=== PATIENT | male | born 1960 | race Asian ===

== ENCOUNTER 2018-11-15 12:39 | Emergency (ER) | payer OTHER ==
--- NOTE | 2018-11-15 12:51 | PDOC ---
History of Present Illness - General Chief Complaint: Pain, Acute Stated Complaint: PATIENT HERE FOR KIDNEY STONES\ PAIN OF 10 Time Seen by Provider: 11/15/18 12:50 - History of Present Illness Initial Comments: 11/15/18 13:01 Mr. Gusman is a 58 yo male w/ pmh of single prior kidney stone (reportedly passed at home) who presents for evaluation of 3 hour history of sudden onset R flank pain radiating to groin. Patient reports pain has been increasing and is crampy in nature. Denies other symptoms at this time. The patient denies chest pain, shortness of breath, headache and dizziness. Denies fever, chills, nausea, vomit, diarrhea and constipation. Denies dysuria, frequency, urgency and hematuria. Past History - Past Medical History Allergies/Adverse Reactions: Allergies Allergy/AdvReac Type Severity Reaction Status Date / Time No Known Allergies Allergy Verified 11/15/18 12:53 Home Medications: Ambulatory Orders Vit B Comp/C/Folic/Iron/Vit E [Vitamin B Complex Tablet] 1 tab PO DAILY MDD 1 - Suicide/Smoking/Psychosocial Hx Smoking History: Never smoked Review of Systems - Review of Systems Comments:: 11/15/18 13:02 GENERAL/CONSTITUTIONAL: No fever or chills. No weakness. HEAD, EYES, EARS, NOSE AND THROAT: No change in vision. No ear pain or discharge. No sore throat. CARDIOVASCULAR: No chest pain or shortness of breath RESPIRATORY: No cough, wheezing, or hemoptysis. GASTROINTESTINAL: No nausea, vomiting, diarrhea or constipation. GENITOURINARY: +R flank pain as described. No dysuria, frequency, or change in urination. MUSCULOSKELETAL: No joint or muscle swelling or pain. No neck or back pain. SKIN: No rash NEUROLOGIC: No headache, vertigo, loss of consciousness, or change in strength/ sensation. ENDOCRINE: No increased thirst. No abnormal weight change HEMATOLOGIC/LYMPHATIC: No anemia, easy bleeding, or history of blood clots. ALLERGIC/IMMUNOLOGIC: No hives or skin allergy. *Physical Exam - Physical Exam Comments: 11/15/18 13:03 GENERAL: Awake, alert, and fully oriented, in no acute distress HEAD: No signs of trauma, normocephalic, atraumatic EYES: PERRLA, EOMI, sclera anicteric, conjunctiva clear ENT: Auricles normal inspection, hearing grossly normal, nares patent, oropharynx clear without exudates. Moist mucosa NECK: Normal ROM, supple, no lymphadenopathy, JVD, or masses LUNGS: No distress, speaks full sentences, clear to auscultation bilaterally HEART: Regular rate and rhythm, normal S1 and S2, no murmurs, rubs or gallops, peripheral pulses normal and equal bilaterally. ABDOMEN: +R flank and RLQ TTP. Soft, normoactive bowel sounds. No guarding, no rebound. No masses EXTREMITIES: Normal inspection, Normal range of motion, no edema. No clubbing or cyanosis. NEUROLOGICAL: Cranial nerves II through XII grossly intact. Normal speech, normal gait, no focal sensorimotor deficits SKIN: Warm, Dry, normal turgor, no rashes or lesions noted. ED Treatment Course - LABORATORY CBC & Chemistry Diagram: 11/15/18 12:58 11/15/18 12:58 Medical Decision Making - Medical Decision Making 11/15/18 13:44 Mr. Gusman is a 58 yo male w/ pmh as described who presents for evaluation of symptoms c/w nephrolithiasis vs. uti vs. pyelonephritis. Patient evaluated w/ labs as below as well as spiral CT for confirmation of kidney stone. 11/15/18 13:55 Patient noted to have 4mm partially obstructing stone at R UVJ w/ only mild hydro. Patient will be discharged w/ percocet for breakthrough pain and f/u outpatient w/ PCP at previously scheduled appt later today. Discharging to home. Laboratory Results - last 24 hr 11/15/18 11/15/18 11/15/18 12:58 12:58 12:58 WBC 8.5 RBC 4.50 Hgb 13.1 Hct 38.9 MCV 86.4 MCH 29.2 MCHC 33.8 RDW 13.0 Plt Count 201 MPV 8.8 Absolute Neuts (auto) 5.4 Neutrophils % 63.9 Lymphocytes % 27.0 Monocytes % 5.9 Eosinophils % 2.5 Basophils % 0.7 Nucleated RBC % 0 Sodium 136 Potassium 4.2 Chloride 107 Carbon Dioxide 24 Anion Gap 6 L BUN 20 H Creatinine 1.1 Creat Clearance w eGFR 69.00 Random Glucose 111 H Calcium 9.0 Total Bilirubin 0.4 AST 19 ALT 25 Alkaline Phosphatase 134 H Total Protein 7.3 Albumin 3.8 Urine Color Yellow Urine Appearance Clear Urine pH 7.0 Ur Specific [place] 1.029 Urine Protein Negative Urine Glucose (UA) Negative Urine Ketones Trace H Urine Blood Negative Urine Nitrite Negative Urine Bilirubin Negative Urine Urobilinogen 1.0 Ur Leukocyte Esterase Negative *DC/Admit/Observation/Transfer Diagnosis at time of Disposition: Kidney stone on right side - Discharge Dispostion Disposition: HOME - Referrals Referrals: Tom Velarde MD [Primary Care Provider] - - Patient Instructions Printed Discharge Instructions: DI for Kidney Stones Additional Instructions: You were evaluated today in the ER and found to have a 4mm partially obstructing stone at your right ureterovesicular junction. Your pain improved following IV fluids and NSAIDS for pain control. You may take motrin at home per package instructions for further pain control. We have also sent a proscription to your pharmacy for medicine you may take for breakthrough pain. Please follow-up with primary care provider at previously scheduled appointment later today. Return to ER if any fever, chills, pain not controllable with above treatment, or other concerning symptoms. - Post Discharge Activity
[2018-11-15 12:54] VITALS: BMI 29.0
[2018-11-15] MEDS ORDERED: KETOROLAC TROMETHAMINE 15 MG/ML VIAL IVPUSH ONE (12:55)
[2018-11-15] MEDS ORDERED: SODIUM CHLORIDE 1,000 ML IV STA (12:55)
[2018-11-15] MEDS ORDERED: KETOROLAC TROMETHAMINE 30 MG/1 ML VIAL ONE (12:59)
[2018-11-15 13:10] LABS: BASO % 0.7 % (0-2.0); EOS % 2.5 % (0-4.5); HEMATOCRIT 38.9 % (35.4-49); HEMOGLOBIN 13.1 GM/dL (11.7-16.9); MCH 29.2 pg (25.7-33.7); MCHC 33.8 g/dl (32.0-35.9); MEAN CELL VOLUME 86.4 fl (80-96); MEAN PLT VOLUME 8.8 fl (7.5-11.1); MONO % 5.9 % (3.8-10.2); NEUT % 63.9 % (42.8-82.8); PLATELET COUNT 201 K/MM3 (134-434); WHITE BLOOD COUNT 8.5 K/mm3 (4.0-10.0)
[2018-11-15 13:18] LABS: URINE APPEARANCE CLEAR; URINE BILIRUBIN NEGATIVE (NEGATIVE); URINE COLOR YELLOW; URINE GLUCOSE (UA) NEGATIVE (NEGATIVE); URINE KETONE TRACE (NEGATIVE); URINE LEUK ESTERASE NEGATIVE (NEGATIVE); URINE NITRITE NEGATIVE (NEGATIVE); URINE PROTEIN NEGATIVE (NEGATIVE)
[2018-11-15 13:40] LABS: ALBUMIN 3.8 g/dl (3.4-5.0); ALK PHOS 134 U/L (45-117); ANION GAP 6 MMOL/L (8-16); BILIRUBIN,TOTAL 0.4 mg/dL (0.2-1); BLOOD UREA NITROGEN 20 mg/dL (7-18); CHLORIDE 107 mmol/L (98-107); CO2 24 mmol/L (21-32); CREATININE 1.1 mg/dL (0.55-1.3); GLUCOSE,RANDOM 111 mg/dL (74-106); POTASSIUM 4.2 mmol/L (3.5-5.1); SGOT/AST 19 U/L (15-37); SGPT/ALT 25 U/L (13-61); SODIUM 136 mmol/L (136-145); TOT PROT 7.3 g/dl (6.4-8.2)
--- NOTE | 2018-11-15 13:40 | PDOC ---
Documentation entered by Teri Nesbitt SCRIBE, acting as scribe for Maliha Bermeo MD. Attending Attestation - Resident Resident Name: Carlos Melgoza - ED Attending Attestation I have performed the following: I have examined & evaluated the patient, The case was reviewed & discussed with the resident, I agree w/resident's findings & plan - HPI HPI: 11/15/18 12:57 The patient is a 58 year old male with no significant PMH who presents to the ER with right flank pain. Patient states the right flank pain is sharp with radiation to the right groin. Patient denies any other associated symptoms. Patient reports he has passed a small kidney stone in the past. The patient denies chest pain, shortness of breath, headache and dizziness. Denies fever, chills, nausea, vomit, diarrhea and constipation. Denies dysuria, frequency, urgency and hematuria. Allergies: NKA Past surgical history: None reported. Social history: No reported alcohol, drug or cigarette use. - Physicial Exam PE: GENERAL: Awake, alert, and fully oriented, in no acute distress. Appears uncomfortable. HEAD: No signs of trauma EYES: PERRLA, EOMI, sclera anicteric, conjunctiva clear ENT: Auricles normal inspection, hearing grossly normal, nares patent, oropharynx clear without exudates. Moist mucosa NECK: Normal ROM, supple, no lymphadenopathy, JVD, or masses LUNGS: Breath sounds equal, clear to auscultation bilaterally. No wheezes, and no crackles HEART: Regular rate and rhythm, normal S1 and S2, no murmurs, rubs or gallops ABDOMEN: Soft, +mild RLQ tenderness to palpation, normoactive bowel sounds. No guarding, no rebound. No masses. No CVAT EXTREMITIES: Normal range of motion, no edema. No clubbing or cyanosis. No cords, erythema, or tenderness NEUROLOGICAL: Cranial nerves II through XII grossly intact. Normal speech, normal gait. Motor and sensation intact SKIN: Warm, Dry, normal turgor, no rashes or lesions noted. - Medical Decision Making Pt with R flank pain radiating to groin, prior history of kidney stone. Suspect kidney stone. Will give toradol, obtain spiral CT. Maliha Bermeo MD: This documentation has been prepared by the [place] [employer], SCRIBE, under my direction and personally reviewed by me in its entirety. I confirm that the documentation accurately reflects all work, treatment, procedures, and medical decision making performed by me.
[2018-11-15 14:25] VITALS: BP 138/72; PULSE 72; TEMP 98.2
== END 2018-11-15 14:25 | disposition home or self-care (01) ==
LOC: JER 12:39
PROC: 3E0337Z Introduction of Electrolytic and Water Balance Substance into Peripheral Vein, Percutaneous Approach (ICD-10-PCS; principal; 2018-11-15)
PROC: 3E0333Z Introduction of Anti-inflammatory into Peripheral Vein, Percutaneous Approach (ICD-10-PCS; 2018-11-15)
DX: N13.2 Hydronephrosis with renal and ureteral calculous obstruction (principal); Z87.442 Personal history of urinary calculi
CPT/HCPCS: 36415; 74176-TC; 80053; 81003; 85025; 87086; 99283-25; J7030

== ENCOUNTER 2021-06-10 13:41 | Emergency (ER) | payer OTHER ==
[2021-06-10 14:09] VITALS: TEMP 97.7; BMI 28.7
[2021-06-10 16:54] LABS: BASO % 0.7 % (0-2.0); EOS % 1.5 % (0-4.5); HEMATOCRIT 37.4 % (35.4-49); HEMOGLOBIN 13.1 GM/dL (11.7-16.9); LYMPH % 33.2 % (8-40); MCH 29.6 pg (25.7-33.7); MCHC 34.9 g/dl (32.0-35.9); MEAN CELL VOLUME 84.9 fl (80-96); MEAN PLT VOLUME 8.8 fl (7.5-11.1); MONO % 7.9 % (3.8-10.2); NEUT % 56.7 % (42.8-82.8); PLATELET COUNT 205 10^3/uL (134-434); RBC 4.41 M/mm3 (4.00-5.60); WHITE BLOOD COUNT 6.5 K/mm3 (4.0-10.0)
[2021-06-10 16:55] LABS: CHLORIDE 106 mmol/L (98-107); SODIUM 140 mmol/L (136-145)
[2021-06-10 16:57] LABS: ANION GAP 3 MMOL/L (8-16); BLOOD UREA NITROGEN 10.6 mg/dL (7-18); CALCIUM 8.7 mg/dL (8.5-10.1); CO2 31 mmol/L (21-32); GLUCOSE,RANDOM 93 mg/dL (74-106); MAGNESIUM 2.4 mg/dL (1.8-2.4)
[2021-06-10 16:58] LABS: ALBUMIN 3.4 g/dl (3.4-5.0)
[2021-06-10 17:00] LABS: SGOT/AST 15 U/L (15-37); SGPT/ALT 26 U/L (13-61)
[2021-06-10 17:01] LABS: PHOSPHOROUS 3.3 mg/dL (2.5-4.9)
[2021-06-10 17:02] LABS: BILIRUBIN,TOTAL 0.4 mg/dL (0.2-1)
[2021-06-10 17:03] LABS: ALK PHOS 131 U/L (45-117)
[2021-06-10 20:38] VITALS: BP 118/68; PULSE 66
== END 2021-06-10 19:00 | disposition home or self-care (01) ==
LOC: JER 13:41
DX: R20.2 Paresthesia of skin (principal)
CPT/HCPCS: 36415; 70450-TC; 71046-TC-FY; 72125-TC; 80053; 82550; 83735; 84100; 84484; 85025; 93005; 93010; 99284-25; C9803; U0003; U0005

== ENCOUNTER 2021-08-15 11:21 | Emergency (ER) | payer OTHER ==
[2021-08-15 12:55] VITALS: BP 130/73; PULSE 64; TEMP 98.1; BMI 27.4
[2021-08-15 13:17] LABS: BASO % 0.8 % (0-2.0); EOS % 3.5 % (0-4.5); HEMATOCRIT 39.1 % (35.4-49); HEMOGLOBIN 12.8 GM/dL (11.7-16.9); LYMPH % 32.4 % (8-40); MCH 28.2 pg (25.7-33.7); MCHC 32.7 g/dl (32.0-35.9); MEAN CELL VOLUME 86.2 fl (80-96); MEAN PLT VOLUME 8.5 fl (7.5-11.1); MONO % 7.1 % (3.8-10.2); NEUT % 56.2 % (42.8-82.8); PLATELET COUNT 192 10^3/uL (134-434); RBC 4.53 M/mm3 (4.00-5.60); RDW 13.1 % (11.9-15.9); WHITE BLOOD COUNT 5.9 K/mm3 (4.0-10.0)
[2021-08-15 13:35] LABS: CHLORIDE 107 mmol/L (98-107); SODIUM 143 mmol/L (136-145)
[2021-08-15 13:37] LABS: CALCIUM 8.8 mg/dL (8.5-10.1)
[2021-08-15 13:38] LABS: ALBUMIN 3.5 g/dl (3.4-5.0); ANION GAP 8 MMOL/L (8-16); BLOOD UREA NITROGEN 15.3 mg/dL (7-18); CO2 28 mmol/L (21-32); GLUCOSE,RANDOM 104 mg/dL (74-106)
[2021-08-15 13:41] LABS: SGOT/AST 16 U/L (15-37); SGPT/ALT 25 U/L (13-61)
[2021-08-15 13:42] LABS: BILIRUBIN,TOTAL 0.4 mg/dL (0.2-1); TOT PROT 6.7 g/dl (6.4-8.2)
[2021-08-15 13:44] LABS: ALK PHOS 124 U/L (45-117)
== END 2021-08-15 14:53 | disposition home or self-care (01) ==
LOC: JER 11:21
DX: R20.2 Paresthesia of skin (principal)
CPT/HCPCS: 36415; 70450-TC; 70551-TC; 80053; 82550; 84484; 85025; 93005; 93010; 99285-25

== ENCOUNTER 2023-01-22 13:34 | Emergency (ER) | payer OTHER ==
[2023-01-22 13:51] VITALS: BP 105/64; PULSE 88; RESP 16; TEMP 98.6; BMI 28.7
[2023-01-22] MEDS ORDERED: NITROFURANTOIN MACROCRYSTAL 50 MG CAPSULE (FP) PO ONE (14:45)
[2023-01-22] MEDS ORDERED: NITROFURANTOIN MACROCRYSTAL 50 MG CAPSULE (FP) ONE (14:47)
[2023-01-22 15:01] LABS: EPI CELLS 21 /uL (0-25.1); HYALINE CASTS 0 /uL (0-3.1); URINE APPEARANCE CLEAR; URINE BACTERIA 35 /uL (0-1359); URINE BILIRUBIN NEGATIVE (NEGATIVE); URINE COLOR YELLOW; URINE GLUCOSE (UA) NEGATIVE (NEGATIVE); URINE KETONE NEGATIVE (NEGATIVE); URINE LEUK ESTERASE 2+ (NEGATIVE); URINE NITRITE NEGATIVE (NEGATIVE); URINE PROTEIN TRACE (NEGATIVE); URINE RBC 20 /uL (0-23.9); URINE UROBILINOGEN 0.2 mg/dL (0.2-1.0); URINE WBC 232 /uL (0-25.8)
== END 2023-01-22 15:14 | disposition home or self-care (01) ==
LOC: JER 13:34
DX: R30.0 Dysuria (principal); R10.30 Lower abdominal pain, unspecified; N30.01 Acute cystitis with hematuria
CPT/HCPCS: 81003; 87086; 99283-25